=== PATIENT | female | born 1945 | race Caucasian/White ===

== ENCOUNTER 2017-11-09 10:49 | Emergency (ER) | payer MEDICARE ==
[2017-11-09 11:38] VITALS: BP 152/65
--- NOTE | 2017-11-09 12:13 | UC ---
Lower Extremity/Ankle HPI - HPI Summary HPI Summary: Patient is an otherwise healthy 72-year-old female presenting to the with concern over posterior knee and calf tenderness 2 months. Denies any swelling or erythema to the area. Denies any blood thinners. Denies any recent travel. She states the pain began after a day golfing approximately 2 months ago and has been progressively getting worse. She endorses worsening pain with ambulation, better with rest. Has been using heat and ibuprofen without relief. History of knee injury on the ipsilateral side many years ago, but states this has never bothered her. Denies any pain to the medial or lateral knee with anterior knee. - History of Current Complaint Chief Complaint: UCLowerExtremity Stated Complaint: LEG PAIN Time Seen by Provider: 11/09/17 11:46 Hx Obtained From: Patient ?: No Onset/Duration: Sudden Onset, Lasting Hours Severity Currently: Mild Pain Intensity: 5 Pain Scale Used: 0-10 Numeric Aggravating Factor(s): Standing, Ambulation Alleviating Factor(s): Rest Able to Bear Weight: Yes - Risk Factors Gout Risk Factors: Age Over 40 DVT Risk Factors: Negative Septic Arthritis Risk Factor: Extremes of Age - Allergies/Home Medications Allergies/Adverse Reactions: Allergies Allergy/AdvReac Type Severity Reaction Status Date / Time Sulfa (Sulfonamide Allergy Rash Verified 11/09/17 11:31 Antibiotics) Home Medications: Home Medications Lisinopril 10 mg PO DAILY 11/09/17 [History Confirmed 11/09/17] Simvastatin [Zocor 5 MG-] 5 mg PO DAILY 11/09/17 [History Confirmed 11/09/17] PMH/Surg Hx/FS Hx/Imm Hx Previously Healthy: Yes - Surgical History Surgical History: Yes Surgery Procedure, Year, and Place: BREAST BIOPSY - Family History Known Family History: Positive: Cardiac Disease - Social History Occupation: Unemployed Alcohol Use: None Substance Use Type: None Smoking Status (MU): Never Smoked Tobacco Review of Systems Constitutional: Negative Skin: Negative Respiratory: Negative Cardiovascular: Negative Musculoskeletal: Myalgia - posterior calf and knee pain Neurological: Negative Psychological: Negative Is Patient Immunocompromised?: No All Other Systems Reviewed And Are Negative: Yes Physical Exam Triage Information Reviewed: Yes Appearance: Well-Appearing, No Pain Distress, Well-Nourished Vital Signs: Initial Vital Signs Temp 96.1 F 11/09/17 11:35 Pulse 71 11/09/17 11:35 Resp 16 11/09/17 11:35 BP 152/65 11/09/17 11:35 Pulse Ox 100 11/09/17 11:35 Vital Signs Reviewed: Yes Eye Exam: Normal Eyes: Positive: Conjunctiva Clear Neck exam: Normal Neck: Positive: Supple Respiratory Exam: Normal Cardiovascular Exam: Normal Musculoskeletal Exam: Normal Musculoskeletal: Positive: Strength Intact, Other: - no edema, ecchymosis, or erythema noted to the posterior knee or calf Lower Extremity Course/Dx - Course Course Of Treatment: Patient is concerned over a possible DVT due to location of pain. She states the injury occurred approximately 2 months ago while on a golf outing. Denies any travel. Denies any numbness malignancy, denies smoking history. DVT US obtained. No DVT identified. Likely muscular strain. I have advised ibuprofen and heat to the area. I have also given her an orthopedic follow-up for any worsening or changing symptoms. - Differential Dx/Diagnosis Differential Diagnosis/HQI/PQRI: DVT, Sprain, Strain Provider Diagnoses: Muscle Strain Discharge - Sign-Out/Discharge Documenting (check all that apply): Patient Departure - Discharge Plan Condition: Stable Disposition: HOME Referrals: Jade Yang MD [Medical Doctor] - Cadence Sam MD [Primary Care Provider] - Additional Instructions: Moist heat to the area I have given you an orthopedic follow up if symptoms persist Ibuprofen 600mg three times daily Gentle stretches - Billing Disposition and Condition Condition: STABLE Disposition: Home Attestation Statement User Type: Provider - I was available for consult. This patient was seen by the MICHAEL. The patient was not presented to, seen by, or examined by me. -Paula
--- NOTE | 2017-11-09 12:22 | RAD ---
HISTORY: posterior knee and calf pain COMPARISONS: None relevant TECHNIQUE: Multiple transverse and longitudinal ultrasound images were obtained of the right lower extremity from the level of the common femoral vein inferiorly through to the infrapopliteal veins using grayscale, color Doppler, and spectral Doppler imaging with and without compression and with augmentation. Comparison images were obtained of the contralateral common femoral vein. FINDINGS: VEINS: The venous system of the right lower extremity is compressible throughout its course, with normal flow on color Doppler imaging and normal response to augmentation on spectral Doppler imaging. SOFT TISSUES: Unremarkable. OTHER FINDINGS: No popliteal fossa cyst is identified. IMPRESSION: NO RIGHT LOWER EXTREMITY DEEP VEIN THROMBOSIS
== END 2017-11-09 12:49 | disposition home or self-care (01) ==
LOC: UCEAST 10:49
DX: S86.919A Strain of unspecified muscle(s) and tendon(s) at lower leg level, unspecified leg, initial encounter (principal); Z88.2 Allergy status to sulfonamides; X58.XXXA Exposure to other specified factors, initial encounter; Y93.53 Activity, golf; Y92.9 Unspecified place or not applicable
CPT/HCPCS: 99211; G0463

== ENCOUNTER 2023-10-24 09:13 | Observation (INO) ==
[2023-10-24 10:42] LABS: PCO2 Arterial 67 mmHg (35-45); PO2 Arterial 126 mmHg (80-100)
[2023-10-24 10:59] LABS: ABS Basophils 0.1 10^3/uL (0.0-0.1); ABS Eosinophils 0.1 10^3/uL (0.0-0.5); ABS Lymphocytes 0.9 10^3/uL (1.0-4.8); ABS Monocytes 0.5 10^3/uL (0.0-0.9); ABS Neutrophils 7.9 10^3/uL (1.5-7.6); ABS Nucleated RBC 0.01 10^3/ul; Eosinophil % 0.6 %; Hematocrit 40.5 % (35-45); Hemoglobin 13.5 g/dL (11.5-14.3); Lymphocyte % 9.3 %; Mean Corpuscular Hemoglobin 30.9 pg (27-33); Mean Corpuscular Hgb Conc 33.5 g/dL (31-36); Mean Corpuscular Volume 92.4 fL (80-97); Mean Platelet Volume 8.1 fL (7.5-11.2); Nucleated Red Blood Cells % 0.1 %/100WBC (0.0-0.8); Platelet Count 315 10^3/uL (150-450); Red Blood Count 4.38 10^6/uL (3.63-4.92); Red Cell Distribution Width 14.2 % (12-17); White Blood Count 9.4 10^3/uL (3.8-11.8)
[2023-10-24 11:07] LABS: Activated Partial Thrombo Time 32.9 seconds (26.0-38.0); INR 0.94 (0.83-1.13)
[2023-10-24 11:43] LABS: Albumin/Globulin Ratio 1.7 (1-3); C Reactive Protein 4.24 mg/L (<8.01); Calcium 9.8 mg/dL (8.6-10.3); Creatinine, Serum 0.5 mg/dL (0.51-0.95); Globulin 2.3 g/dL (2-4); Potassium 4.7 mmol/L (3.5-5.0); Total Bilirubin 0.9 mg/dL (0.2-1.0); Total Protein 6.3 g/dL (6.4-8.9); eGFR CKD-EPI 96.5 (>60)
[2023-10-24] MEDS: Lactated Ringers 1000 ml BAG 1,000 ML IV ONE (12:23)
[2023-10-24] MEDS: Iohexol 350 (CONTRAST) 500 ML MDV IV ONE (12:59)
[2023-10-24 14:12] LABS: High Sensitivity Troponin 1 Hr 19 pg/mL (<15)
[2023-10-24] MEDS ORDERED: Albuterol 2.5mg/3 ml (0.083%) NEB.SOLN INH PRN (15:11)
[2023-10-24] MEDS: hydrALAZINE 20 mg/ml 1 ML Vial IV IV SLOW PU ONE (15:28)
[2023-10-24] MEDS: Piperacillin/Tazobac 3.375 BAG 3.375 GM/100 ML BAG IV ONE (15:30)
[2023-10-24] MEDS: Glycerin ADULT 2.4 gm SUPP PR ONE (15:42)
[2023-10-24 15:52] LABS: Urine Appearance Clear; Urine Bilirubin Negative (Negative); Urine Blood Negative (Negative); Urine Color Yellow; Urine Glucose Negative (Negative); Urine Ketones Trace (Negative); Urine Nitrite 1+ (Negative); Urine Protein Trace (Negative); Urine Specific Gravity 1.047 (1.002-1.030); Urine Urobilinogen Negative (Negative); Urine pH 5.5 (5.0-8.0)
[2023-10-24 15:55] LABS: Urine Bacteria 1+ /HPF (Absent); Urine Red Blood Cell Trace(0-2/hpf) /HPF (0-Trace); Urine Squamous Epithelial Cell Present /HPF (Absent); Urine White Blood Cell 3+(>20/hpf) /HPF (0-Trace)
[2023-10-24] MEDS ORDERED: Azithromycin 500 mg/250 ml NS 500 MG/250 ML BAG IVPB SCH (16:00)
[2023-10-24] MEDS ORDERED: hydrALAZINE 20 mg/ml 1 ML Vial IV IV SLOW PU PRN (16:25)
[2023-10-24] MEDS ORDERED: Ondansetron 4 mg VIAL 2 MG/ML 2 ml VIAL IV PRN (17:29)
[2023-10-24] MEDS ORDERED: Atropine 1% (ORAL/SL) 15 ML BTL SL PRN (17:29)
[2023-10-24] MEDS: Fluticasone NASAL SPRAY 50MCG 16 gm SPRAY BTL INTRANASAL SCH (17:40)
[2023-10-24] MEDS: Enoxaparin 40 MG/0.4 ML SYR SUBCUT SCH (17:41)
[2023-10-24] MEDS: Azithromycin 500 mg/250 ml NS 500 MG/250 ML BAG IVPB SCH (17:41)
[2023-10-24] MEDS: SMOG Enema (MgOH-NS-Gly-MinO) 330 ML ENEMA PR ONE (17:44)
[2023-10-24] MEDS: D5NS 0.9% 1000 ml BAG 1,000 ML IV SCH (17:45)
[2023-10-24] MEDS: RILUZOLE 50 MG PO SCH (22:02)
[2023-10-25] MEDS: cefTRIAXone 1 gm/50 mL D5W 1 GM/50 ML BAG IV SCH (10:33)
[2023-10-25] MEDS: EDARAVONE PO SCH (10:35)
[2023-10-25] MEDS: SMOG Enema (MgOH-NS-Gly-MinO) 330 ML ENEMA PR ONE (14:00)
[2023-10-25] MEDS: RILUZOLE 50 MG PO SCH (16:22)
[2023-10-26] MEDS: EDARAVONE PO SCH (08:11)
[2023-10-26 08:42] VITALS: BP 162/57
[2023-10-26] MEDS: Morphine 2 MG/ML SYRINGE IV PRN (19:22)
== END 2023-10-27 05:50 | disposition expired ==
LOC: ED 09:13 → INTOOBSV 15:22 → MED 15:22 → SUATTDRO 15:22 → MED 16:33
PROVIDERS: ADMIT Internal Medicine; ATTEND Internal Medicine